=== PATIENT | male | born 1990 | race African-American/Black ===

== ENCOUNTER → 2017-12-20 | Outpatient (CLI) | payer BC ==
[2017-12-20 17:30] LABS: HEMATOCRIT 43.7 % (42-52); HEMOGLOBIN 13.6 g/dL (14.0-18.0); MEAN CELL VOLUME 72.6 fL (80-100); MEAN CORPUSCULAR HEMOGLOBIN 22.6 pg (25-34); MEAN CORPUSCULAR HGB CONC 31.1 g/dl (32-36); PLATELET COUNT 163 K/uL (130-400); RED CELL DISTRIBUTION WIDTH CV 14.8 % (11.5-14.5); WHITE BLOOD COUNT 5.31 K/uL (4.8-10.8)
[2017-12-20 17:42] LABS: ALBUMIN 4.1 gm/dl (3.4-5.0); ALKALINE PHOSPHATASE 50 U/L (45-117); ALT/SGPT 31 U/L (12-78); AST/SGOT 19 U/L (15-37); BLOOD UREA NITROGEN 14 mg/dl (7-18); CALCIUM 8.6 mg/dl (8.5-10.1); CARBON DIOXIDE 27 mmol/L (21-32); CREATININE 1.11 mg/dl (0.60-1.40); GLUCOSE 63 mg/dl (70-99); POTASSIUM 3.9 mmol/L (3.5-5.1); SODIUM 142 mmol/L (136-145); TOTAL PROTEIN 7.4 gm/dl (6.4-8.2)
[2017-12-26 17:40] LABS: HEPATITIS B CORE IGM TC51854R NON-REACTIVE (NON-REACTIVE)
--- NOTE | 2017-12-29 06:07 | CODING QUERY NO DIAGNOSIS ---
TREATMENT RENDERED WITHOUT A DIAGNOSIS To promote full compliance with coding requirements relating to patient care, physician participation is requested in all cases of [facility] manager uncertainty. Please assist us with providing a diagnosis/symptom for the test(s) below: A diagnosis/symptom was not documented on your Order. A valid diagnosis/symptom is required to bill all insurances. Please remember that we are unable to code a diagnosis of rule out, probable, possible, questionable, or suspected. Tests that require a diagnosis: DOS 12/20 * CBC, CMP, HIV, Sickle Cell screen, Hep B DIAGNOSIS: Provider Signature: Date: Thank you Shantelle [facility] Once completed, please kindly fax back to [phone] For questions please call [phone]
== END | disposition home or self-care (01) ==
LOC: C.LAB 13:53
PROVIDERS: ATTEND Emergency Medicine Emergency Medical Services
DX: D56.0 Alpha thalassemia (principal)